=== PATIENT | female | born 1940 | race American Indian/Alaskan Native ===

== ENCOUNTER 2018-10-23 15:19 | Outpatient (CLI) | payer MEDICARE, OTHER | END 2018-10-23 15:20 | disposition home or self-care (01) | LOC: C.RADH 15:19 | DX: M79.671 Pain in right foot (principal) ==

== ENCOUNTER 2019-01-03 13:53 | Outpatient (CLI) | payer MEDICARE, OTHER | END 2019-01-03 13:54 | disposition home or self-care (01) | LOC: C.USIC 13:53 ==